=== PATIENT | female | born 1945 | race Caucasian/White ===

== ENCOUNTER 2019-05-13 23:20 | Emergency (ER) | payer MEDICARE ==
--- NOTE | 2019-05-13 23:54 | ERPHSYRPT ---
- History of Present Illness Time Seen by Provider: 05/13/19 23:45 Source: patient, EMS Exam Limitations: no limitations Physician History: The patient is a 73 y/o female who reportedly has bilateral lower extremity neuropathy, he is, hypertension, and chronic low back pain for which she reportedly has had since the fall 2019 presents with a chief complaint of low back pain. She states her pain is primarily located around her coccygeal region and has reportedly gotten worse over the last couple days. She states she has had similar pain in the past and has been evaluated at [facility] and is currently scheduled to follow-up with pain management in about a month. She takes gabapentin for pain and reportedly has been taking Tylenol and ibuprofen with no relief in her symptoms. She endorsed having some increased frequency and some burning sensation whenever she urinates. Of note, the patient formally resided in assisted living because of her inability to walk independently remedies. The patient is also morbidly obese. , Chills, shortness of breath, chest pain, recent injury, specifically falls. She endorsed having some lower extremity edema which is normal for her and stated she has a history of "CHF". Allergies/Adverse Reactions: No Known Drug Allergies Allergy (Verified 05/14/19 02:35) Home Medications: Albuterol 2.5 mg/3 ml Neb [Proventil 2.5 mg/3 ml Neb] 2.5 mg IH QID [History] Allopurinol 300 mg [Zyloprim 300 mg] 300 mg PO DAILY 05/14/19 [History] Amlodipine Besylate/Benazepril [Lotrel 5-40 mg Capsule] 1 each PO DAILY [History] Cholestyramine (with Sugar) [Cholestyramine Packet] 4 gm PO BID 05/14/19 [ History] Cranberry Fruit Extract [Cranberry] 150 mg PO BID 05/14/19 [History] Cyclobenzaprine HCl 10 mg [Cyclobenzaprine 10 MG] 10 mg PO HS 05/14/19 [ History] Etodolac 300 mg PO DAILY 05/14/19 [History] Fluconazole [Diflucan ] 150 mg PO DAILY 05/14/19 [History] Fluticasone/Salmeterol 500/50* [Advair 500-50 Diskus] 1 each IH BID 05/14/19 [History] Gabapentin 400 mg [Neurontin 400 MG] 400 mg PO BID 05/14/19 [History] Hydrocodone Bit/Acetaminophen [Hydrocodon-Acetaminophen 5-325] 1 each PO Q6H PRN PRN 05/14/19 [History] Magnesium Oxide [Magnesium] 400 mg PO DAILY 05/14/19 [History] Metformin HCl [Fortamet] 1,000 mg PO DAILY 05/14/19 [History] Omeprazole 40 mg PO DAILY 05/14/19 [History] Prednisone 5 mg [Deltasone 5 mg] 5 mg PO DAILY 05/14/19 [History] Ropinirole HCl 0.5 mg [Requip 0.5 MG] 0.5 mg PO DAILY 05/14/19 [History] Tizanidine HCl 4 mg [Zanaflex 4 MG] 4 mg PO TID PRN 05/14/19 [History] Travel Risk - International Travel Have you traveled outside of the country in past 3 weeks: No Have you or anyone close to you been diagnosed with or: No Do your reside in a community with a known COVID-19 case?: No - Coronavirus Screening Has patient experienced Coronavirus symptoms: No - Review of Systems Constitutional: Weakness, No Fever, No Chills Eyes: No Symptoms Ears, Nose, & Throat: No Symptoms Respiratory: No Cough, No Cyanosis, No Dyspnea Cardiac: Edema (Bilateral lower extremity edema), No Chest Pain Abdominal/Gastrointestinal: No Abdominal Pain, No Nausea, No Vomiting Musculoskeletal: Back Pain, No Neck Pain, No Deformity, No Fall Skin: No Symptoms Neurological: Other (Pain and swelling in bilateral lower extremities), No Dizziness, No Focal Weakness, No Headache Psychological: No Symptoms Endocrine: No Symptoms Hematologic/Lymphatic: No Symptoms Immunological/Allergic: No Symptoms All Other Systems: Reviewed and Negative - Past Medical History Cardiac History: Hypertension Respiratory History: Asthma, CHF, COPD Endocrine Medical History: Diabetes Type II - Nursing Vital Signs Nursing Vital Signs: Initial Vital Signs Temperature 98.1 F 05/13/19 23:24 Pulse Rate 79 05/13/19 23:24 Respiratory Rate 22 05/13/19 23:24 Blood Pressure 165/87 05/13/19 23:24 O2 Sat by Pulse Oximetry 98 05/13/19 23:24 Pain Scale Pain Intensity 0 - Physical Exam General Appearance: no apparent distress, alert, obese Eye Exam: PERRL/EOMI, No EOM palsy/anisocoria Ears, Nose, Throat Exam: normal ENT inspection, moist mucous membranes, No pharyngeal erythema Neck Exam: supple Respiratory Exam: normal breath sounds, lungs clear, airway intact, other, No respiratory distress Cardiovascular Exam: regular rate/rhythm, normal heart sounds, normal peripheral pulses, edema (Bilateral and symmetric lower extremity edema), No murmur, No friction rub, No gallop, No tachycardia Gastrointestinal/Abdomen Exam: other (Abdominal exam was limited due to body habitus), No tenderness, No guarding Pelvic Exam: not done Rectal Exam: deferred, other (Ulcers noted to the perianal region or buttocks) Back Exam: normal inspection, point tenderness (Point tenderness noted to the L- spine and coccyx/sacrum), other (There is no evidence of skin breakdown to the back or flank ecchymosis.), No CVA tenderness Neurologic Exam: alert, oriented x 3 Skin Exam: normal color, warm, dry, No rash, No petechiae, No jaundice, No cyanosis, No jaundice SpO2 Interpretation: normal O2 Delivery: Room Air - Course Nursing assessment & vital signs reviewed: Yes - CT Exams Abdomen/Pelvis CT Interpretation: Other (Hepatomegaly. Mild liver contour nodularity concerning for cirrhosis. Diverticulosis of the colon. No evidence of acute diverticulitis. Multilevel degenerative disease and facet hypertrophy of the lumbar spine. Mild anterior listhesis of the L4 on L5. No hydronephrosis or nephrolithiasis bilaterally. No bowel obstruction. Normal appendix.) Ordered Tests: Active Orders 24 hr Category Date Time Status IV Insertion STAT Care 05/14/19 00:01 Active ABDOMEN AND PELVIS W/0 CONTRAS [CT] Stat Exams 05/14/19 00:03 Taken BMP Stat Lab 05/14/19 00:28 Completed CBC W DIFF Stat Lab 05/14/19 00:28 Completed CULTURE,URINE Stat Lab 05/14/19 02:24 Received Folate (Folic Acid) Stat Lab 05/14/19 00:28 Completed UA W/RFX UR CULTURE Stat Lab 05/14/19 02:24 Completed Vitamin B12 Stat Lab 05/14/19 00:28 Completed Medication Summary Discontinued Medications Generic Name Dose Route Start Last Admin Trade Name Sherman PRN Reason Stop Dose Admin Ceftriaxone Sodium/Dextrose 1 g in 50 mls @ 100 mls/hr 05/14/19 02:51 03:04 Rocephin 1 Gm-D5w 50 Ml Bag IV 05/14/19 03:20 100 mls/hr STAT STA 100 mls/hr Administration Ceftriaxone Sodium/Dextrose Confirm 05/14/19 02:59 Rocephin 1 Gm-D5w 50 Ml Bag Administered 05/14/19 03:00 Dose 1 g in 50 mls @ ud IV .STK-MED ONE Morphine Sulfate 6 mg 05/14/19 00:05 05/14/19 00:39 Morphine Sulfate 4 Mg Inj IV 05/14/19 00:06 8 mg STAT ONE Administration Morphine Sulfate Confirm 05/14/19 00:30 Morphine Sulfate 4 Mg Inj Administered 05/14/19 00:31 Dose 8 mg .ROUTE .STK-MED ONE Ondansetron HCl 4 mg 05/14/19 00:05 05/14/19 00:39 Zofran 4 Mg/2 Ml Vial IV 05/14/19 00:06 4 mg STAT ONE Administration Ondansetron HCl Confirm 05/14/19 00:30 Zofran 4 Mg/2 Ml Vial Administered 05/14/19 00:31 Dose 4 mg .ROUTE .STK-MED ONE Lab/Rad Data: Laboratory Result Diagrams 05/14/19 00:28 05/14/19 00:28 Laboratory Results 05/14/19 05/14/19 05/14/19 Range/Units 02:24 00:28 00:28 WBC (4.0-10.5) K/mm3 RBC (4.1-5.4) M/mm3 Hgb (12.0-16.0) gm/dl Hct (35-47) % MCV (78-100) fl MCH (26-32) pg MCHC (32-36) g/dl RDW (11.5-14.0) % Plt Count (150-450) K/mm3 MPV (7.5-11.0) fl Gran % (36.0-66.0) % Eos # (Auto) (0-0.5) Absolute Lymphs (auto) (1.0-4.6) Absolute Monos (auto) (0.0-1.3) Lymphocytes % (24.0-44.0) % Monocytes % (0.0-12.0) % Eosinophils % (0.00-5.0) % Basophils % (0.0-0.4) % Absolute Granulocytes (1.4-6.9) Basophils # (0-0.4) Sodium 142 (137-145) mmol/L Potassium 4.8 (3.5-5.1) mmol/L Chloride 111 H (98-107) mmol/L Carbon Dioxide 22 (22-30) mmol/L Anion Gap 13.3 (5-15) MEQ/L BUN 39 H (7-17) mg/dL Creatinine 1.08 H (0.52-1.04) mg/dL Estimated GFR 53.0 ML/MIN Glucose 112 H (74-106) mg/dL Calcium 10.6 H (8.4-10.2) mg/dL Vitamin B12 318 (239-931) pg/mL Folic Acid 14.6 (2.76 - >20) ng/mL Urine Color YELLOW (YELLOW) Urine Appearance TURBID (CLEAR) Urine pH 5.0 (5-6) Ur Specific [place] 1.013 (1.005-1.025) Urine Protein 30 (Negative) Urine Ketones NEGATIVE (NEGATIVE) Urine Blood SMALL (0-5) Adrian/ul Urine Nitrite POSITIVE (NEGATIVE) Urine Bilirubin NEGATIVE (NEGATIVE) Urine Urobilinogen NEGATIVE (0-1) mg/dL Ur Leukocyte Esterase LARGE (NEGATIVE) Urine WBC (Auto) >100 (0-5) /HPF Urine RBC (Auto) 26-50 (0-2) /HPF U Epithel Cells (Auto) NONE (FEW) /HPF Urine Bacteria (Auto) MANY (NEGATIVE) /HPF Urine Culture Reflexed ORDERED SEPARATELY (NO) Urine Glucose NEGATIVE (NEGATIVE) mg/dL 05/14/19 Range/Units 00:28 WBC 8.2 (4.0-10.5) K/mm3 RBC 3.87 L (4.1-5.4) M/mm3 Hgb 10.4 L (12.0-16.0) gm/dl Hct 33.7 L (35-47) % MCV 87.1 (78-100) fl MCH 26.9 (26-32) pg MCHC 30.9 L (32-36) g/dl RDW 16.8 H (11.5-14.0) % Plt Count 290 (150-450) K/mm3 MPV 11.3 H (7.5-11.0) fl Gran % 45.8 (36.0-66.0) % Eos # (Auto) 0.65 H (0-0.5) Absolute Lymphs (auto) 2.97 (1.0-4.6) Absolute Monos (auto) 0.75 (0.0-1.3) Lymphocytes % 36.4 (24.0-44.0) % Monocytes % 9.2 (0.0-12.0) % Eosinophils % 8.0 H (0.00-5.0) % Basophils % 0.6 (0.0-0.4) % Absolute Granulocytes 3.73 (1.4-6.9) Basophils # 0.05 (0-0.4) Sodium (137-145) mmol/L Potassium (3.5-5.1) mmol/L Chloride (98-107) mmol/L Carbon Dioxide (22-30) mmol/L Anion Gap (5-15) MEQ/L BUN (7-17) mg/dL Creatinine (0.52-1.04) mg/dL Estimated GFR ML/MIN Glucose (74-106) mg/dL Calcium (8.4-10.2) mg/dL Vitamin B12 (239-931) pg/mL Folic Acid (2.76 - >20) ng/mL Urine Color (YELLOW) Urine Appearance (CLEAR) Urine pH (5-6) Ur Specific [place] (1.005-1.025) Urine Protein (Negative) Urine Ketones (NEGATIVE) Urine Blood (0-5) Adrian/ul Urine Nitrite (NEGATIVE) Urine Bilirubin (NEGATIVE) Urine Urobilinogen (0-1) mg/dL Ur Leukocyte Esterase (NEGATIVE) Urine WBC (Auto) (0-5) /HPF Urine RBC (Auto) (0-2) /HPF U Epithel Cells (Auto) (FEW) /HPF Urine Bacteria (Auto) (NEGATIVE) /HPF Urine Culture Reflexed (NO) Urine Glucose (NEGATIVE) mg/dL - Progress Progress: improved Progress Note: 05/14/19 03:09 From [facility] and it appears the patient had plain films of her sacrum and coccyx performed on March 202019 pelvis The findings of the bones were noted to have marked diffuse osteopenia however there is arthritic changes in the facet joints at L4/L5 and L5-S1 with bony hypertrophy with the sacroiliac joints being symmetric. Dense of grade 1 anterior spondylolisthesis of L4 in relation L5 which was noted to be stable compared to a previous CT. 05/14/19 06:49 And had to stay in the emergency department because she was unable to get transportation home, specifically ambulance transport or have any family members to provide transportation. The plan is to have her transported home via [facility] ambulance at 8:00 this morning. Counseled pt/family regarding: lab results, diagnosis, need for follow-up, rad results - Departure Departure Disposition: Home Clinical Impression: UTI (urinary tract infection), Low back pain, Coccydynia, Neuropathy Condition: Stable Critical Care Time: No Referrals: ANNI FINCH [Primary Care Provider] - Instructions: Peripheral Neuropathy, Low Back Pain in Adults, Urinary Tract Infection, Adult (DC) Prescriptions: Hydrocodone/APAP 5-325 Tab^^^ [Axson 5-325 Tablet^^^] 1 tab PO Q6HPRN PRN #20 tablet MDD 6 PRN Reason: Pain Cephalexin Mh 500 mg [Keflex 500 mg] 500 mg PO QID 10 Days #40 capsule Phenazopyridine HCl 200 mg [Pyridium 200 mg] 200 mg PO TID #6 tablet
[2019-05-14] MEDS ORDERED: Zofran 4 MG/2 ML VIAL IV ONE (00:05)
[2019-05-14] MEDS ORDERED: MORPHINE SULFATE 4 MG INJ IV ONE (00:05)
[2019-05-14] MEDS ORDERED: MORPHINE SULFATE 4 MG INJ ONE (00:30)
[2019-05-14] MEDS ORDERED: Zofran 4 MG/2 ML VIAL ONE (00:30)
[2019-05-14 00:35] LABS: Absolute Neutrophil Ct (ANC) 3.73 (1.4-6.9); BASOPHIL % 0.6 % (0.0-0.4); Basophil (Absolute #) 0.05 (0-0.4); Eosinophil (Absolute #) 0.65 (0-0.5); Hematocrit 33.7 % (35-47); Hemoglobin 10.4 gm/dl (12.0-16.0); Lymphocyte (Absolute #) 2.97 (1.0-4.6); Lymphocytes % 36.4 % (24.0-44.0); Mean Cell Volume 87.1 fl (78-100); Mean Corpuscular Hemoglobin 26.9 pg (26-32); Mean Corpuscular Hgb Concent. 30.9 g/dl (32-36); Mean Platelet Volume 11.3 fl (7.5-11.0); Monocyte (Absolute #) 0.75 (0.0-1.3); Monocytes % 9.2 % (0.0-12.0); Neutrophil % 45.8 % (36.0-66.0); Platelet Count 290 K/mm3 (150-450); Red Blood Count 3.87 M/mm3 (4.1-5.4); Red Cell Distribution Width 16.8 % (11.5-14.0); White Blood Count 8.2 K/mm3 (4.0-10.5)
[2019-05-14 00:48] LABS: ANION GAP 13.3 MEQ/L (5-15); Calcium 10.6 mg/dL (8.4-10.2); Creatinine 1 1.08 mg/dL (0.52-1.04); Potassium 4.8 mmol/L (3.5-5.1)
[2019-05-14 01:54] LABS: Folate (Folic Acid) 14.6 ng/mL (2.76 - >20)
[2019-05-14 02:31] LABS: Appearance TURBID (CLEAR); Bacteria MANY /HPF (NEGATIVE); Bilirubin NEGATIVE (NEGATIVE); Blood SMALL Ery/ul (0-5); Glucose NEGATIVE (NEGATIVE); Ketones NEGATIVE (NEGATIVE); Leukocyte Esterase LARGE (NEGATIVE); Nitrite POSITIVE (NEGATIVE); Protein,Urine Dip 30 (Negative); RBC 26-50 /HPF (0-2); Specific Gravity 1.013 (1.005-1.025); Urobilinogen NEGATIVE mg/dL (0-1); WBC >100 /HPF (0-5)
[2019-05-14] MEDS ORDERED: ROCEPHIN 1 Gm-D5w 50 ml Bag** 1 G/50 ML IVPB IV STA (02:51)
[2019-05-14] MEDS ORDERED: ROCEPHIN 1 Gm-D5w 50 ml Bag** 1 G/50 ML IVPB IV ONE (02:59)
[2019-05-14] MEDS ORDERED: NORCO 5/325 MG PO ONE (06:57)
[2019-05-14] MEDS ORDERED: NORCO 5/325 MG ONE (07:03)
[2019-05-14 07:18] VITALS: BP 130/65; PULSE 80; O2SAT 100
--- NOTE | 2019-05-14 09:42 | XRAY ---
Indication: Low back pain. Multiple contiguous axial images obtained through the abdomen and pelvis without contrast as ordered. Comparison: None Study is limited due to patient body habitus. Lung bases demonstrates bibasilar dependent atelectasis and left lower lobe calcified granuloma. No infiltrate or effusion. Heart is not enlarged. Small hiatal hernia. Noncontrasted stomach and bowel loops appear nonobstructed. Normal appendix. Mild diffuse scattered colonic fecal debris and diverticulosis throughout. No free fluid/air. Left kidney demonstrates a few cysts, largest upper pole measuring 4.8 cm. Tiny splenic calcified granuloma. Bilateral adnexal surgical clips, intact ventral hernia graft, and previous cholecystectomy. Remaining liver, pancreas, spleen, adrenal glands, kidneys, ureters, bladder, and uterus appear unremarkable for noncontrast exam. Mild scattered aortic calcifications without AAA. Osseous structures intact with mild/moderate degenerative spondylosis throughout the thoracolumbar spine, 7-8 mm L4 spondylolisthesis, and moderate/advanced left hip degenerative changes. Impression: 1. Morbid obesity. 2. Mild diffuse fecal stasis without obstruction. 3. Small hiatal hernia and diffuse colonic diverticulosis. 4. Left renal cysts. 5. Multilevel degenerative spondylosis, grade 1 L4 spondylolisthesis, and left hip degenerative changes. Comment: Preliminary interpretation was made by [facility]. No critical discrepancy.
== END 2019-05-14 08:39 | disposition home or self-care (01) ==
LOC: ED 23:20
DX: N39.0 Urinary tract infection, site not specified (principal); M54.5 Low back pain; M53.3 Sacrococcygeal disorders, not elsewhere classified; G62.9 Polyneuropathy, unspecified; I50.9 Heart failure, unspecified; Z79.899 Other long term (current) drug therapy
CPT/HCPCS: 36000; 36415; 74176; 80048; 81001; 82607; 82746; 85025; 87077; 87086; 87186; 96365; 96374; 96375; 99284; J0696; J2270; J2405; A9270-GY

== ENCOUNTER 2019-05-19 18:08 | Emergency (ER) | payer MEDICARE ==
[2019-05-19] MEDS ORDERED: Sodium Chloride 0.9% 1000 ML 1,000 ML IV STA (18:15)
[2019-05-19] MEDS ORDERED: Sodium Chloride 0.9% 1000 ML 1,000 ML IV SCH (18:15)
[2019-05-19] MEDS ORDERED: Sodium Chloride 0.9% 1000 ML 2,000 ML ONE (18:27)
[2019-05-19 18:45] LABS: Hematocrit 36.6 % (35-47); Hemoglobin 11.5 gm/dl (12.0-16.0); Mean Cell Volume 85.5 fl (78-100); Mean Corpuscular Hemoglobin 26.9 pg (26-32); Mean Corpuscular Hgb Concent. 31.4 g/dl (32-36); Mean Platelet Volume 11.5 fl (7.5-11.0); Platelet Count 307 K/mm3 (150-450); Red Blood Count 4.28 M/mm3 (4.1-5.4); Red Cell Distribution Width 16.4 % (11.5-14.0)
--- NOTE | 2019-05-19 18:51 | ERPHSYRPT ---
- History of Present Illness Source: family, EMS Exam Limitations: no limitations Timing/Duration: day(s) (2-3 days) Associated Symptoms: fever, malaise Hx Tetanus, Diphtheria Vaccination/Date Given: No Hx Influenza Vaccination/Date Given: Yes Hx Pneumococcal Vaccination/Date Given: Yes <LAURIE RUBIN - Last Filed: 05/19/19 18:52> <ALEJANDRINA CARMEN - Last Filed: 05/19/19 22:57> - History of Present Illness Time Seen by Provider: 05/19/19 18:47 Physician History: patient is 73-year-old female, morbidly obese bought in to ER via Ambulance with c/o fever, confusion for 1-2 days. In Er Patient is alert awake oriented to time place and person. Denies any symptoms but weakness. (LAURIE RUBIN) Allergies/Adverse Reactions: No Known Drug Allergies Allergy (Verified 05/14/19 02:35) Home Medications: Albuterol 2.5 mg/3 ml Neb [Proventil 2.5 mg/3 ml Neb] 2.5 mg IH QID [History] Allopurinol 300 mg [Zyloprim 300 mg] 300 mg PO DAILY 05/14/19 [History] Amlodipine Besylate/Benazepril [Lotrel 5-40 mg Capsule] 1 each PO DAILY [History] Cholestyramine (with Sugar) [Cholestyramine Packet] 4 gm PO BID 05/14/19 [ History] Cranberry Fruit Extract [Cranberry] 150 mg PO BID 05/14/19 [History] Cyclobenzaprine HCl 10 mg [Cyclobenzaprine 10 MG] 10 mg PO HS 05/14/19 [ History] Etodolac 300 mg PO DAILY 05/14/19 [History] Fluconazole [Diflucan ] 150 mg PO DAILY 05/14/19 [History] Fluticasone/Salmeterol 500/50* [Advair 500-50 Diskus] 1 each IH BID 05/14/19 [History] Gabapentin 400 mg [Neurontin 400 MG] 400 mg PO BID 05/14/19 [History] Hydrocodone Bit/Acetaminophen [Hydrocodon-Acetaminophen 5-325] 1 each PO Q6H PRN PRN 05/14/19 [History] Magnesium Oxide [Magnesium] 400 mg PO DAILY 05/14/19 [History] Metformin HCl [Fortamet] 1,000 mg PO DAILY 05/14/19 [History] Omeprazole 40 mg PO DAILY 05/14/19 [History] Prednisone 5 mg [Deltasone 5 mg] 5 mg PO DAILY 05/14/19 [History] Ropinirole HCl 0.5 mg [Requip 0.5 MG] 0.5 mg PO DAILY 05/14/19 [History] Tizanidine HCl 4 mg [Zanaflex 4 MG] 4 mg PO TID PRN 05/14/19 [History] Travel Risk - International Travel Have you traveled outside of the country in past 3 weeks: No Have you or anyone close to you been diagnosed with or: No Do your reside in a community with a known COVID-19 case?: Yes - Coronavirus Screening Has patient experienced Coronavirus symptoms: Yes Symptoms experienced: fever(equal or > 100.4 F), weakness <CARYN,LAURIE - Last Filed: 05/19/19 18:52> - Review of Systems Constitutional: Fever, Chills, Malaise, Weakness Eyes: No Symptoms Ears, Nose, & Throat: No Symptoms Respiratory: No Cough, No Dyspnea Cardiac: No Chest Pain, No Edema, No Syncope Abdominal/Gastrointestinal: No Abdominal Pain, No Nausea, No Vomiting, No Diarrhea Genitourinary Symptoms: No Dysuria Musculoskeletal: No Back Pain, No Neck Pain Skin: No Rash Neurological: No Dizziness, No Focal Weakness, No Sensory Changes Psychological: No Symptoms Endocrine: No Symptoms All Other Systems: Reviewed and Negative <CARNY,LAURIE - Last Filed: 05/19/19 18:52> - Past Medical History Cardiac History: Hypertension Respiratory History: Asthma, CHF, COPD Endocrine Medical History: Diabetes Type II GI Medical History: GERD Other Medical History: chronic back pain. rls. gout - Past Surgical History Past Surgical History: Yes Gastrointestinal: Cholecystectomy Female Surgical History: Tubal Ligation Other Surgical History: "growth taken off liver" - Social History Smoking Status: Never smoker Exposure to second hand smoke: No Drug Use: none Patient Lives Alone: Yes <CARYN,LAURIE - Last Filed: 05/19/19 18:52> - Physical Exam General Appearance: no apparent distress, alert Eye Exam: PERRL/EOMI, eyes nml inspection Ears, Nose, Throat Exam: normal ENT inspection, TMs normal, pharynx normal, moist mucous membranes Neck Exam: normal inspection, non-tender, supple, full range of motion Respiratory Exam: diminished breath sounds, wheezing, No respiratory distress Cardiovascular Exam: regular rate/rhythm, normal heart sounds, normal peripheral pulses Gastrointestinal/Abdomen Exam: soft, normal bowel sounds, No tenderness, No mass Back Exam: normal inspection, normal range of motion, No CVA tenderness, No vertebral tenderness Extremity Exam: normal inspection, normal range of motion, pelvis stable Neurologic Exam: alert, oriented x 3, cooperative, normal mood/affect, nml cerebellar function, nml station & gait, sensation nml, No motor deficits Skin Exam: normal color, warm, dry, No rash Lymphatic Exam: No adenopathy <CARYN - Last Filed: 05/19/19 18:52> - Physical Exam SpO2 Interpretation: hypoxic SpO2: 91 O2 Delivery: Room Air <ALEJANDRINA CARMEN - Last Filed: 05/19/19 22:57> - Nursing Vital Signs Nursing Vital Signs: Initial Vital Signs Temperature 102.6 F 05/19/19 18:10 Pulse Rate 110 H 05/19/19 18:10 Respiratory Rate 22 05/19/19 18:10 Blood Pressure 120/71 05/19/19 18:10 O2 Sat by Pulse Oximetry 91 L 05/19/19 18:10 Pain Scale Pain Intensity 0 - Course Nursing assessment & vital signs reviewed: Yes EKG Interpreted by Me: RATE (92), Sinus Rhythm, NORMAL AXIS, Non-specific ST Changes - Radiology Exams Chest X-ray Interpretation: Discussed w/ radiologist (non-acute chest with chronic features.) - CT Exams Chest CT Interpretation: Tele-radiologist Report (There is a central filling defect in the descending right pulmonary artery which extends into right middle lobe and right lower lobe branches of the right pulmonary artery and additional central filling defect in the left lower lobe pulmonary artery consistent with bilateral acute pulmonary embolism with no central saddle embolus. There is mild prominence of the main pulmonary artery consistent with mild pulmonary arterial hypertension. No signs of right ventricular strain.) <ALEJANDRINA CARMEN - Last Filed: 05/19/19 22:57> Ordered Tests: Active Orders 24 hr Category Date Time Status Knitter Machine STAT Care 05/19/19 18:46 Active EKG-ER Only STAT Care 05/19/19 19:18 Active Patel [Catheter-[place] Patel] STAT Care 05/19/19 18:45 Active IV Insertion STAT Care 05/19/19 18:45 Active IV Insertion-2nd Peripheral STAT Care 05/19/19 18:45 Active Isolation, Initiate & Maintain Q4H Care 05/19/19 18:15 Active Oxygen-ED Only Nasal Cannula 2 lpm Care 05/19/19 18:46 Active Oxygen-ED Only Nasal Cannula 2 lpm Care 05/19/19 19:18 Active Oxygen-ED Only Nasal Cannula 4 lpm Care 05/19/19 22:51 Active CHEST 1 VIEW (PORTABLE) Stat Exams 05/19/19 18:17 Completed CHEST WITH CONTRAST [CT] Stat Exams 05/19/19 20:11 Taken BLOOD CULTURE Stat Lab 05/19/19 20:00 Received CBC W DIFF Stat Lab 05/19/19 18:20 Completed CMP Stat Lab 05/19/19 18:20 Completed CULTURE,SPUTUM Stat Lab 05/19/19 19:20 Uncollected CULTURE,URINE Stat Lab 05/19/19 18:44 Ordered D-DIMER QUANTITATIVE Stat Lab 05/19/19 18:25 Completed Lactic Acid Stat Lab 05/19/19 18:50 Completed MAGNESIUM Stat Lab 05/19/19 18:25 Completed Manual Differential NC Stat Lab 05/19/19 18:20 Completed Blair Screen Stat Lab 05/19/19 18:25 Completed NT PRO BNP Stat Lab 05/19/19 18:25 Completed TROPONIN Q3H Lab 05/19/19 18:25 Completed TROPONIN Q3H Lab 05/20/19 01:30 Ordered TROPONIN Q3H Lab 05/20/19 04:30 Ordered TROPONIN Q3H Lab 05/20/19 07:30 Ordered UA W/RFX UR CULTURE Stat Lab 05/19/19 18:20 Completed VENOUS BLOOD GAS Stat Lab 05/19/19 19:47 Completed Medication Summary Generic Name Dose Route Start Last Admin Trade Name Freq PRN Reason Stop Dose Admin Albuterol Sulfate 180 gm 05/19/19 22:45 Ventolin Hfa Mdi IH 06/18/19 22:44 1XONLY YOSI Sodium Chloride 1,000 mls @ 100 mls/hr 05/19/19 18:15 05/19/19 18:29 Sodium Chloride 0.9% 1000 Ml IV 06/18/19 18:14 100 mls/hr .Q10H YOSI Administration Discontinued Medications Generic Name Dose Route Start Last Admin Trade Name Freq PRN Reason Stop Dose Admin Acetaminophen 650 mg 05/19/19 19:47 05/19/19 19:56 Tylenol 325 Mg PO 05/19/19 19:48 650 mg STAT ONE Administration Acetaminophen Confirm 05/19/19 19:50 Tylenol 325 Mg Administered 05/19/19 19:51 Dose 650 mg .ROUTE .STK-MED ONE Enoxaparin Sodium 120 mg 05/19/19 22:44 Enoxaparin Sodium SQ 05/19/19 22:45 STAT STA Sodium Chloride 1,000 mls @ 999 mls/hr 05/19/19 18:15 05/19/19 19:43 Sodium Chloride 0.9% 1000 Ml IV 05/19/19 19:15 Infused .Q1H1M STA Infusion Ceftriaxone Sodium/Dextrose 1 g in 50 mls @ 100 mls/hr 05/19/19 19:21 20:23 Rocephin 1 Gm-D5w 50 Ml Bag IV 05/19/19 19:50 Infused STAT STA Infusion Azithromycin 500 mg in 250 mls @ 250 mls/hr 05/19/19 19:21 05/19/19 20:55 Zithromax 500 Mg/ 250 Ml Nacl Premix IV 05/19/19 20:20 Infused STAT STA Infusion Azithromycin Confirm 05/19/19 19:50 Zithromax 500 Mg/ 250 Ml Nacl Premix Administered 05/19/19 19:51 Dose 500 mg in 250 mls @ ud IV .STK-MED ONE Ceftriaxone Sodium/Dextrose Confirm 05/19/19 19:50 Rocephin 1 Gm-D5w 50 Ml Bag Administered 05/19/19 19:51 Dose 1 g in 50 mls @ ud IV .STK-MED ONE Magnesium Sulfate/Dextrose 100 mls @ 200 mls/hr 05/19/19 20:13 05/19/19 20:26 Magnesium 1 Gm / 100 Ml D5w IV 05/19/19 20:42 200 mls/hr STAT ONE Administration Magnesium Sulfate/Dextrose Confirm 05/19/19 20:25 Magnesium 1 Gm / 100 Ml D5w Administered 05/19/19 20:26 Dose 100 mls @ ud IV .STK-MED ONE Lab/Rad Data: Laboratory Result Diagrams 05/19/19 18:20 05/19/19 18:20 Laboratory Results 05/19/19 05/19/19 05/19/19 Range/Units 19:47 18:50 18:25 WBC (4.0-10.5) K/mm3 RBC (4.1-5.4) M/mm3 Hgb (12.0-16.0) gm/dl Hct (35-47) % MCV (78-100) fl MCH (26-32) pg MCHC (32-36) g/dl RDW (11.5-14.0) % Plt Count (150-450) K/mm3 MPV (7.5-11.0) fl D-Dimer (215-500) ng/mL pO2/FiO2 Ratio 21.0 % VBG pH 7.39 (7.32-7.42) VBG pCO2 at Pat Temp 41 L (42-55) mm/Hg VBG pO2 at Pat Temp 46 H (25-40) mm/Hg VBG HCO3 24.8 (22-28) meq/L VBG O2 Sat (Annika) 80.4 L (95-100) VBG Base Excess -0.2 (-2.0-2.0) VBG Hemoglobin 12.3 VBG Carboxyhemoglobin 4.7 (0.0-6.9) % T HGB POC Potassium 4.3 (3.5-5.1) Sodium (137-145) mmol/L Potassium (3.5-5.1) mmol/L Chloride (98-107) mmol/L Carbon Dioxide (22-30) mmol/L Anion Gap (5-15) MEQ/L BUN (7-17) mg/dL Creatinine (0.52-1.04) mg/dL Estimated GFR ML/MIN Glucose (74-106) mg/dL Lactic Acid 1.8 (0.4-2.0) Calcium (8.4-10.2) mg/dL Magnesium (1.6-2.3) mg/dL Total Bilirubin (0.2-1.3) mg/dL AST (14-36) U/L ALT (0-35) U/L Alkaline Phosphatase (38-126) U/L Troponin I 0.038 H* (0.000-0.034) ng/mL NT-Pro-B Natriuret Pep (0-900) pg/mL Serum Total Protein (6.3-8.2) g/dL Albumin (3.5-5.0) g/dL Urine Color (YELLOW) Urine Appearance (CLEAR) Urine pH (5-6) Ur Specific Challenge (1.005-1.025) Urine Protein (Negative) Urine Ketones (NEGATIVE) Urine Blood (0-5) Adrian/ul Urine Nitrite (NEGATIVE) Urine Bilirubin (NEGATIVE) Urine Urobilinogen (0-1) mg/dL Ur Leukocyte Esterase (NEGATIVE) Urine WBC (Auto) (0-5) /HPF Urine RBC (Auto) (0-2) /HPF U Epithel Cells (Auto) (FEW) /HPF Unidentified Crystals (NEGATIVE) /HPF Other Casts (Auto) (NEGATIVE) /LPF Urine Yeast (Budding) (NEGATIVE) /HPF Urine Culture Reflexed (NO) Urine Glucose (NEGATIVE) mg/dL Monoscreen (Negative) Influenza Type A Ag (NEGATIVE) Influenza Type B Ag (NEGATIVE) RSV (PCR) (Negative) Group A Strep Antibody (NEGATIVE) 05/19/19 05/19/19 05/19/19 Range/Units 18:25 18:25 18:25 WBC (4.0-10.5) K/mm3 RBC (4.1-5.4) M/mm3 Hgb (12.0-16.0) gm/dl Hct (35-47) % MCV (78-100) fl MCH (26-32) pg MCHC (32-36) g/dl RDW (11.5-14.0) % Plt Count (150-450) K/mm3 MPV (7.5-11.0) fl D-Dimer 2521 H* (215-500) ng/mL pO2/FiO2 Ratio % VBG pH (7.32-7.42) VBG pCO2 at Pat Temp (42-55) mm/Hg VBG pO2 at Pat Temp (25-40) mm/Hg VBG HCO3 (22-28) meq/L VBG O2 Sat (Annika) (95-100) VBG Base Excess (-2.0-2.0) VBG Hemoglobin VBG Carboxyhemoglobin (0.0-6.9) % T HGB POC Potassium (3.5-5.1) Sodium (137-145) mmol/L Potassium (3.5-5.1) mmol/L Chloride (98-107) mmol/L Carbon Dioxide (22-30) mmol/L Anion Gap (5-15) MEQ/L BUN (7-17) mg/dL Creatinine (0.52-1.04) mg/dL Estimated GFR ML/MIN Glucose (74-106) mg/dL Lactic Acid (0.4-2.0) Calcium (8.4-10.2) mg/dL Magnesium 1.0 L* (1.6-2.3) mg/dL Total Bilirubin (0.2-1.3) mg/dL AST (14-36) U/L ALT (0-35) U/L Alkaline Phosphatase (38-126) U/L Troponin I (0.000-0.034) ng/mL NT-Pro-B Natriuret Pep 2110 H (0-900) pg/mL Serum Total Protein (6.3-8.2) g/dL Albumin (3.5-5.0) g/dL Urine Color (YELLOW) Urine Appearance (CLEAR) Urine pH (5-6) Ur Specific Challenge (1.005-1.025) Urine Protein (Negative) Urine Ketones (NEGATIVE) Urine Blood (0-5) Adrian/ul Urine Nitrite (NEGATIVE) Urine Bilirubin (NEGATIVE) Urine Urobilinogen (0-1) mg/dL Ur Leukocyte Esterase (NEGATIVE) Urine WBC (Auto) (0-5) /HPF Urine RBC (Auto) (0-2) /HPF U Epithel Cells (Auto) (FEW) /HPF Unidentified Crystals (NEGATIVE) /HPF Other Casts (Auto) (NEGATIVE) /LPF Urine Yeast (Budding) (NEGATIVE) /HPF Urine Culture Reflexed (NO) Urine Glucose (NEGATIVE) mg/dL Monoscreen (Negative) Influenza Type A Ag (NEGATIVE) Influenza Type B Ag (NEGATIVE) RSV (PCR) (Negative) Group A Strep Antibody NOT DETECTED (NEGATIVE) 05/19/19 05/19/19 05/19/19 Range/Units 18:25 18:20 18:20 WBC (4.0-10.5) K/mm3 RBC (4.1-5.4) M/mm3 Hgb (12.0-16.0) gm/dl Hct (35-47) % MCV (78-100) fl MCH (26-32) pg MCHC (32-36) g/dl RDW (11.5-14.0) % Plt Count (150-450) K/mm3 MPV (7.5-11.0) fl D-Dimer (215-500) ng/mL pO2/FiO2 Ratio % VBG pH (7.32-7.42) VBG pCO2 at Pat Temp (42-55) mm/Hg VBG pO2 at Pat Temp (25-40) mm/Hg VBG HCO3 (22-28) meq/L VBG O2 Sat (Annika) (95-100) VBG Base Excess (-2.0-2.0) VBG Hemoglobin VBG Carboxyhemoglobin (0.0-6.9) % T HGB POC Potassium (3.5-5.1) Sodium (137-145) mmol/L Potassium (3.5-5.1) mmol/L Chloride (98-107) mmol/L Carbon Dioxide (22-30) mmol/L Anion Gap (5-15) MEQ/L BUN (7-17) mg/dL Creatinine (0.52-1.04) mg/dL Estimated GFR ML/MIN Glucose (74-106) mg/dL Lactic Acid (0.4-2.0) Calcium (8.4-10.2) mg/dL Magnesium (1.6-2.3) mg/dL Total Bilirubin (0.2-1.3) mg/dL AST (14-36) U/L ALT (0-35) U/L Alkaline Phosphatase (38-126) U/L Troponin I (0.000-0.034) ng/mL NT-Pro-B Natriuret Pep (0-900) pg/mL Serum Total Protein (6.3-8.2) g/dL Albumin (3.5-5.0) g/dL Urine Color YELLOW (YELLOW) Urine Appearance CLEAR (CLEAR) Urine pH 5.0 (5-6) Ur Specific Challenge 1.006 (1.005-1.025) Urine Protein NEGATIVE (Negative) Urine Ketones NEGATIVE (NEGATIVE) Urine Blood NEGATIVE (0-5) Adrian/ul Urine Nitrite NEGATIVE (NEGATIVE) Urine Bilirubin NEGATIVE (NEGATIVE) Urine Urobilinogen NEGATIVE (0-1) mg/dL Ur Leukocyte Esterase TRACE (NEGATIVE) Urine WBC (Auto) 11-15 (0-5) /HPF Urine RBC (Auto) 0-2 (0-2) /HPF U Epithel Cells (Auto) RARE (FEW) /HPF Unidentified Crystals 2-5 (NEGATIVE) /HPF Other Casts (Auto) NEGATIVE (NEGATIVE) /LPF Urine Yeast (Budding) Few (NEGATIVE) /HPF Urine Culture Reflexed NO (NO) Urine Glucose NEGATIVE (NEGATIVE) mg/dL Monoscreen NEGATIVE (Negative) Influenza Type A Ag NEGATIVE (NEGATIVE) Influenza Type B Ag NEGATIVE (NEGATIVE) RSV (PCR) NEGATIVE (Negative) Group A Strep Antibody (NEGATIVE) 05/19/19 05/19/19 Range/Units 18:20 18:20 WBC 14.0 H (4.0-10.5) K/mm3 RBC 4.28 (4.1-5.4) M/mm3 Hgb 11.5 L (12.0-16.0) gm/dl Hct 36.6 (35-47) % MCV 85.5 (78-100) fl MCH 26.9 (26-32) pg MCHC 31.4 L (32-36) g/dl RDW 16.4 H (11.5-14.0) % Plt Count 307 (150-450) K/mm3 MPV 11.5 H (7.5-11.0) fl D-Dimer (215-500) ng/mL pO2/FiO2 Ratio % VBG pH (7.32-7.42) VBG pCO2 at Pat Temp (42-55) mm/Hg VBG pO2 at Pat Temp (25-40) mm/Hg VBG HCO3 (22-28) meq/L VBG O2 Sat (Annika) (95-100) VBG Base Excess (-2.0-2.0) VBG Hemoglobin VBG Carboxyhemoglobin (0.0-6.9) % T HGB POC Potassium (3.5-5.1) Sodium 135 L (137-145) mmol/L Potassium 4.5 (3.5-5.1) mmol/L Chloride 98 (98-107) mmol/L Carbon Dioxide 25 (22-30) mmol/L Anion Gap 16.8 H (5-15) MEQ/L BUN 16 (7-17) mg/dL Creatinine 0.85 (0.52-1.04) mg/dL Estimated GFR > 60.0 ML/MIN Glucose 137 H (74-106) mg/dL Lactic Acid (0.4-2.0) Calcium 9.5 (8.4-10.2) mg/dL Magnesium (1.6-2.3) mg/dL Total Bilirubin 0.90 (0.2-1.3) mg/dL AST 36 (14-36) U/L ALT 50 H (0-35) U/L Alkaline Phosphatase 79 (38-126) U/L Troponin I (0.000-0.034) ng/mL NT-Pro-B Natriuret Pep (0-900) pg/mL Serum Total Protein 7.7 (6.3-8.2) g/dL Albumin 3.9 (3.5-5.0) g/dL Urine Color (YELLOW) Urine Appearance (CLEAR) Urine pH (5-6) Ur Specific Challenge (1.005-1.025) Urine Protein (Negative) Urine Ketones (NEGATIVE) Urine Blood (0-5) Adrian/ul Urine Nitrite (NEGATIVE) Urine Bilirubin (NEGATIVE) Urine Urobilinogen (0-1) mg/dL Ur Leukocyte Esterase (NEGATIVE) Urine WBC (Auto) (0-5) /HPF Urine RBC (Auto) (0-2) /HPF U Epithel Cells (Auto) (FEW) /HPF Unidentified Crystals (NEGATIVE) /HPF Other Casts (Auto) (NEGATIVE) /LPF Urine Yeast (Budding) (NEGATIVE) /HPF Urine Culture Reflexed (NO) Urine Glucose (NEGATIVE) mg/dL Monoscreen (Negative) Influenza Type A Ag (NEGATIVE) Influenza Type B Ag (NEGATIVE) RSV (PCR) (Negative) Group A Strep Antibody (NEGATIVE) <CARYN,LAURIE - Last Filed: 05/19/19 18:52> - Progress Progress: unchanged Discussed with : Other (spoke with dr wolfe([id number]) who accepted pt for transfer to [facility].) Counseled pt/family regarding: lab results, rad results <ALEJANDRINA CARMEN - Last Filed: 05/19/19 22:57> - Progress Progress Note: 05/19/19 19:[address] carmen @ 1910: perrl, eomi, pharynx mildly erythematous, TM's not injected, lungs have expiratory wheezing over bases A & P, no cardiac rub, abdominal b.s. normal, no cyanosis, alert & cooperative, oriented x3. (ALEJANDRINA CARMEN) <LAURIE RUBIN - Last Filed: 05/19/19 18:52> - Departure Departure Disposition: Transfer ([facility]) Critical Care Time: Yes Critical Care Time(excluding separately billable procedures): Critical 30-74 mins <ALEJANDRINA CARMEN - Last Filed: 05/19/19 22:57> - Departure Clinical Impression: Pulmonary embolism, bilateral, Respiratory distress, HTN (hypertension), Asthma , COPD (chronic obstructive pulmonary disease), hx chf, Diabetes, GERD ( gastroesophageal reflux disease), Gout Condition: Serious Referrals: ANNI FINCH [Primary Care Provider] -
[2019-05-19 18:52] LABS: Appearance CLEAR (CLEAR); Bilirubin NEGATIVE (NEGATIVE); Blood NEGATIVE Ery/ul (0-5); Epithelial Cells RARE /HPF (FEW); Glucose NEGATIVE (NEGATIVE); Ketones NEGATIVE (NEGATIVE); Leukocyte Esterase TRACE (NEGATIVE); Nitrite NEGATIVE (NEGATIVE); Protein,Urine Dip NEGATIVE (Negative); RBC 0-2 /HPF (0-2); Specific Gravity 1.006 (1.005-1.025); Urobilinogen NEGATIVE mg/dL (0-1)
[2019-05-19 18:57] LABS: ALBUMIN 3.9 g/dL (3.5-5.0); ALKALINE PHOSPHATASE 79 U/L (38-126); ANION GAP 16.8 MEQ/L (5-15); BLOOD UREA NITROGEN 16 mg/dL (7-17); CHLORIDE 98 mmol/L (98-107); Calcium 9.5 mg/dL (8.4-10.2); Carbon Dioxide 25 mmol/L (22-30); Creatinine 1 0.85 mg/dL (0.52-1.04); Glucose 137 mg/dL (74-106); Potassium 4.5 mmol/L (3.5-5.1); SGOT/AST 36 U/L (14-36); SGPT/ALT 50 U/L (0-35); SODIUM 135 mmol/L (137-145); Total Protein 7.7 g/dL (6.3-8.2)
[2019-05-19 19:00] LABS: Budding Yeast Few /HPF (NEGATIVE)
[2019-05-19 19:17] LABS: INFLUENZA A NEGATIVE (NEGATIVE); INFLUENZA B NEGATIVE (NEGATIVE); RESPIRATORY SYNCTIAL VIRUS NEGATIVE (Negative)
[2019-05-19] MEDS ORDERED: Zithromax 500 MG/ 250 ML NaCl Premix 500 MG/250 ML IVPB IV STA (19:21)
[2019-05-19] MEDS ORDERED: ROCEPHIN 1 Gm-D5w 50 ml Bag** 1 G/50 ML IVPB IV STA (19:21)
--- NOTE | 2019-05-19 19:26 | XRAY ---
Indication: Fever. Confusion. Comparison: None Portable apical lordotic chest clear with incidental right hemidiaphragm elevation. Heart is not enlarged. Bony thorax intact with mild degenerative changes. Impression: Nonacute chest with chronic features.
[2019-05-19] MEDS ORDERED: TYLENOL 325 MG PO ONE (19:47)
[2019-05-19] MEDS ORDERED: Zithromax 500 MG/ 250 ML NaCl Premix 500 MG/250 ML IVPB IV ONE (19:50)
[2019-05-19] MEDS ORDERED: ROCEPHIN 1 Gm-D5w 50 ml Bag** 1 G/50 ML IVPB IV ONE (19:50)
[2019-05-19] MEDS ORDERED: TYLENOL 325 MG ONE (19:50)
[2019-05-19 19:54] LABS: VBG BASE EXCESS -0.2 (-2.0-2.0); VBG CARBOXYHEMOGLOBIN 4.7 % T HGB (0.0-6.9); VBG HCO3- 24.8 meq/L (22-28); VBG HEMOGLOBIN 12.3; VBG O2 SATURATION 80.4 (95-100); VBG POTASSIUM 4.3 (3.5-5.1); VBG pH 7.39 (7.32-7.42)
[2019-05-19] MEDS ORDERED: Magnesium 1 Gm / 100 Ml D5W*** 100 ML IV ONE ×2 (20:13→20:25)
[2019-05-19] MEDS ORDERED: ENOXAPARIN SODIUM SQ STA (22:44)
[2019-05-19] MEDS ORDERED: Ventolin Hfa MDI IH SCH (22:45)
[2019-05-19] MEDS ORDERED: ENOXAPARIN SODIUM SQ ONE (22:50)
[2019-05-19 22:56] VITALS: BP 130/64
[2019-05-19 23:16] VITALS: PULSE 86; O2SAT 92
[2019-05-20 05:05] LABS: Eosinophil 4 % (0.00-3.0); Lymphocytes 25 % (24-44); Monocyte 10 % (0.0-12.0); Neutrophils 61 % (36.0-66.0); Platelet Estimate NORMAL (NORMAL); Total Cells Counted 100
[2019-05-20 05:06] LABS: ANISOCYTOSIS 2+; Poikilocytosis 1+
[2019-05-20 05:07] LABS: Hypochromia 1+
--- NOTE | 2019-05-20 08:06 | XRAY ---
Indication: Fever, confusion, weakness, elevated WBC, and elevated d-dimer. Multiple contiguous axial images obtained through the chest using 80 cc Isovue-370 contrast and PE protocol. Comparison: None There is satisfactory opacification of the pulmonary arteries to include the lobar and segmental branches. Small nonoccluding pulmonary emboli seen in the distal left lower lobe pulmonary artery extending into the proximal lobar branches. Smaller tiny nonoccluding pulmonary emboli in the distal right main pulmonary artery extending into the proximal right middle and right lower lobe branches. Heart is not enlarged. Aorta is minimally arteriosclerotic without aneurysm/dissection. Small subcarinal calcified lymph node. No pathologic mediastinal/hilar lymphadenopathy. Small hiatal hernia. Examination of the lung parenchyma demonstrates mild bilateral dependent atelectasis. Small left posterior gutter calcified granuloma. No suspicious pulmonary mass, infiltrate, or effusion. Bony thorax images mild degenerative changes throughout the spine and old right 2 rib fracture. Limited upper abdomen demonstrates mild fatty liver and 4.9 cm left renal cyst. Impression: 1. Nonoccluding bilateral pulmonary emboli as detailed. 2. Incidental small hiatal hernia, left renal cyst, and evidence for old granulomatous disease. Comment: Preliminary interpretation was made by [facility]. No critical discrepancy.
[2019-05-20] MEDS ORDERED: VENTOLIN COMMON CANISTER IH ONE (22:45)
== END 2019-05-19 23:25 | disposition short-term general hospital (02) ==
LOC: ED 18:08
DX: I26.99 Other pulmonary embolism without acute cor pulmonale (principal); R06.03 Acute respiratory distress; I10 Essential (primary) hypertension; J45.909 Unspecified asthma, uncomplicated; J44.9 Chronic obstructive pulmonary disease, unspecified; I50.9 Heart failure, unspecified; E11.9 Type 2 diabetes mellitus without complications; Z79.4 Long term (current) use of insulin; K21.9 Gastro-esophageal reflux disease without esophagitis; M10.9 Gout, unspecified; Z79.899 Other long term (current) drug therapy
CPT/HCPCS: 36000; 36415; 51702; 71045; 71260; 80053; 81001; 82805; 83605; 83735; 83880; 84484; 85025; 85379; 86308; 87040; 87086; 87631; 87651; 93005; 93041; 94640; 96360; 96365; 96366; 96368; 96372; 96374; 99285; 99291; J0456; J0696; J1650; J3475; A9270-GY